=== PATIENT | male | born 1955 | race Caucasian/White ===

== ENCOUNTER 2018-04-11 10:58 | Emergency (ER) | payer OTHER, MEDICAID ==
[2018-04-11 11:15] VITALS: Ht 165.1 cm
[2018-04-11 12:21] LABS: BASOPHIL % 0.4 % (0-2); PLATELET COUNT 270 x10^3mcL (130-400); RED CELL DISTRIBUTION WIDTH 13.3 % (11.5-14.5)
[2018-04-11 12:25] LABS: microscopic required? NO
[2018-04-11 12:33] LABS: urine erythrocyte NEGATIVE (NEGATIVE)
[2018-04-11 12:43] LABS: FREE T4 0.99 ng/dL (0.76-1.46); T4(THYROXINE) 6.4 ug/dL (4.7-13.3)
[2018-04-11 13:04] LABS: CALCIUM 8.8 mg/dL (8.5-10.1); CARBON DIOXIDE 29.9 mmol/L (21-32); CHLORIDE SERUM 103 mmol/L (98-107); CREATININE SERUM 0.9 mg/dL (0.7-1.3); GFR1 > 60 mL/min; GLUCOSE SERUM 136 mg/dL (74-106); POTASSIUM SERUM 4.3 mmol/L (3.5-5.1); SODIUM SERUM 138 mmol/L (136-145)
[2018-04-11 13:10] LABS: ALKALINE PHOSPHATASE 119 U/L (46-116); ALT/SGPT 43 U/L (16-63); AST/SGOT 33 U/L (15-37); HDL CHOLESTEROL 40 mg/dL (40-60); LIPASE 124 IU/L (73-393); TRIGLYCERIDES 52 mg/dL (<150)
[2018-04-11 13:11] LABS: ALBUMIN 3.3 g/dL (3.4-5.0); CHOLESTEROL 75 mg/dL (<200); CHOLESTEROL/HDL RATIO 1.9
[2018-04-11 13:14] LABS: T3 TOTAL 1.08 ng/mL
[2018-04-11 16:20] VITALS: BP 138/71
== END 2018-04-11 16:20 | disposition home or self-care (01) ==
LOC: ED 10:58
PROVIDERS: Specialist
DX: R10.11 Right upper quadrant pain (principal); E11.9 Type 2 diabetes mellitus without complications; Z90.89 Acquired absence of other organs
CPT/HCPCS: 36415; 83880; 84439; J7030; Q0092; Q9967